=== PATIENT | female | born 1955 | race Caucasian/White ===

== ENCOUNTER 2018-11-09 08:59 | Day surgery (SDC) | payer OTHER ==
[2018-11-09] MEDS ORDERED: CLINDAMYCIN 600 MG/D5W (PMX) 50 ML IVPB (11:30)
[2018-11-09] MEDS ORDERED: SOD CHLORIDE 0.9% 1,000 ML IV (11:30)
[2018-11-09 12:14] LABS: ADD MAN DIFF? NO
[2018-11-09 12:17] LABS: WHITE BLOOD COUNT 7.6 10^3/ul (4.8-10.8)
[2018-11-09 12:17] LABS: BASOPHIL # 0.1 10^3/ul (0.0-0.1); BASOPHILS % 0.7 % (0.0-2.0); EOSINOPHILS # 0.2 10^3/ul (0.0-0.5); EOSINOPHILS % 2.2 % (0.0-7.0); HEMOGLOBIN 14.1 g/dl (12.0-16.0); LYMPHOCYTES # 1.9 10^3/ul (0.8-2.9); LYMPHOCYTES % 24.2 % (15.0-51.0); MEAN CORPUSCULAR HGB CONC 33.6 g/dl (32.0-37.0); MEAN CORPUSCULAR VOLUME 92.3 fl (82.0-101.0); MEAN PLATELET VOLUME 10.9 fl (7.4-10.4); MONOCYTE # 0.6 10^3/ul (0.3-0.9); NEUTROPHIL # 4.9 10^3/ul (1.6-7.5); NEUTROPHILS % 64.5 % (39.0-77.0); PLATELET COUNT 225 10^3/UL (140-415); RED BLOOD COUNT 4.55 10^6/ul (4.20-5.40); RED CELL DISTRIBUTION WIDTH 13.2 % (11.5-14.5)
[2018-11-09 12:34] LABS: ANION GAP 12 (5-13); BLOOD UREA NITROGEN 17 mg/dl (7-20); CARBON DIOXIDE 25 mmol/L (21-31); CHLORIDE 108 mmol/L (97-110); CREATININE 0.73 mg/dl (0.44-1.00); Estimated GFR > 60 mL/min (>60); GLUCOSE 111 mg/dl (70-220)
[2018-11-09 12:35] LABS: SODIUM 145 mmol/L (135-144)
[2018-11-09 12:36] LABS: INR 0.97
[2018-11-09 12:37] LABS: PARTIAL THROMBOPLASTIN TIME 33.2 Sec (23.0-35.0)
[2018-11-09] MEDS ORDERED: BUPIVACAINE 0.25% (MPF) 30 ML INJ (14:02)
[2018-11-09] MEDS ORDERED: MIDAZOLAM 1 MG/ML 2 ML INJ (14:19)
[2018-11-09] MEDS ORDERED: PROPOFOL 20 ML (14:19)
[2018-11-09] MEDS ORDERED: LIDOCAINE 2% (SDV) 5 ML INJ (14:19)
[2018-11-09] MEDS ORDERED: FENTAnyl 50 MCG/ML VIAL (14:20)
[2018-11-09] MEDS ORDERED: DIPHENHYDRAMINE 50 MG INJ IV (14:30)
[2018-11-09] MEDS ORDERED: hydrALAzine 20 MG INJ IV (14:30)
[2018-11-09] MEDS ORDERED: OXYCODONE/ACETAMINOPHEN (5/325) TAB PO (14:30)
[2018-11-09] MEDS ORDERED: LABETALOL HCL 20MG INJ IV (14:30)
[2018-11-09] MEDS ORDERED: ONDANSETRON 4 MG INJ IV ×2 (14:30→15:00)
[2018-11-09] MEDS ORDERED: FENTAnyl 50 MCG/ML VIAL IV (14:30)
[2018-11-09] MEDS ORDERED: MEPERIDINE 25 MG INJ IV (14:30)
[2018-11-09] MEDS ORDERED: HYDROmorphONE 1 MG/5 ML IV SYRINGE IV (14:30)
[2018-11-09] MEDS ORDERED: PROCHLORPERAZINE 10 MG INJ IV (14:30)
[2018-11-09] MEDS ORDERED: CLINDAMYCIN 900 MG/D5W (PMX) 50 ML IVPB (14:38)
[2018-11-09] MEDS ORDERED: PHENYLephrine (100 MCG/ML) 5ML SYG (14:41)
[2018-11-09] MEDS: BUPIVACAINE 0.25% (MPF) 30 ML INJ (14:42)
[2018-11-09] MEDS: LIDOCAINE 1%/EPI (1:100,000) (MDV) 20 ML (14:43)
[2018-11-09] MEDS ORDERED: IBUPROFEN 600 MG TAB PO (15:00)
== END 2018-11-09 16:00 | disposition home or self-care (01) ==
LOC: SDS 08:59
DX: L72.0 Epidermal cyst (principal); I10 Essential (primary) hypertension; E03.9 Hypothyroidism, unspecified
CPT/HCPCS: 11402; 71045; 80048; 85025; 85610; 85730; 88307; 93005